=== PATIENT | female | born 1965 | race Caucasian/White ===

== ENCOUNTER 2018-08-21 21:21 | Emergency (ER) | payer OTHER ==
[2018-08-21 21:50] LABS: ADD MAN DIFF? NO
[2018-08-21 21:51] LABS: WHITE BLOOD COUNT 7.5 10^3/ul (4.8-10.8)
[2018-08-21 21:51] LABS: BASOPHILS % 0.5 % (0.0-2.0); EOSINOPHILS # 0.1 10^3/ul (0.0-0.5); EOSINOPHILS % 0.7 % (0.0-7.0); HEMATOCRIT 35.4 % (37.0-47.0); HEMOGLOBIN 12.5 g/dl (12.0-16.0); LYMPHOCYTES # 1.5 10^3/ul (0.8-2.9); LYMPHOCYTES % 20.3 % (15.0-51.0); MEAN CORPUSCULAR HEMOGLOBIN 29.4 pg (29.0-33.0); MEAN CORPUSCULAR HGB CONC 35.3 g/dl (32.0-37.0); MEAN CORPUSCULAR VOLUME 83.3 fl (82.0-101.0); MEAN PLATELET VOLUME 10.5 fl (7.4-10.4); MONOCYTE # 0.6 10^3/ul (0.3-0.9); MONOCYTES % 7.7 % (0.0-11.0); NEUTROPHIL # 5.3 10^3/ul (1.6-7.5); NEUTROPHILS % 70.4 % (39.0-77.0); PLATELET COUNT 194 10^3/UL (140-415); RED BLOOD COUNT 4.25 10^6/ul (4.20-5.40); RED CELL DISTRIBUTION WIDTH 12.6 % (11.5-14.5)
[2018-08-21] MEDS: SODIUM CHLORIDE 0.9% 1L BAG IV* (21:55)
[2018-08-21 22:10] LABS: ALANINE AMINOTRANSFERASE 22 IU/L (13-69); ALBUMIN 3.7 g/dl (3.3-4.9); ALBUMIN/GLOBULIN RATIO 1.37; ALKALINE PHOSPHATASE 86 IU/L (42-121); ANION GAP 9 (5-13); ASPARTATE AMINO TRANSFERASE 15 IU/L (15-46); BILIRUBIN,INDIRECT 0.8 mg/dl (0-1.1); BILIRUBIN,TOTAL 0.8 mg/dl (0.2-1.3); BLOOD UREA NITROGEN 8 mg/dl (7-20); CARBON DIOXIDE 29 mmol/L (21-31); CHLORIDE 101 mmol/L (97-110); CREATININE 0.81 mg/dl (0.44-1.00); Estimated GFR > 60 mL/min (>60); GLUCOSE 264 mg/dl (70-220); SODIUM 139 mmol/L (135-144); TOTAL PROTEIN 6.4 g/dl (6.1-8.1)
[2018-08-21 22:11] LABS: INR 0.92; PROTIME 12.5 Sec (11.9-14.9)
[2018-08-21 22:12] LABS: PARTIAL THROMBOPLASTIN TIME 28.8 Sec (23.0-35.0)
[2018-08-21] MEDS: CEFEPIME 2GM/50 ML (PMX) 50 ML IVPB (22:22)
[2018-08-21] MEDS: morphine 10 MG INJ IV (22:26)
[2018-08-21] MEDS: VANCOMYCIN 1 GM (PMX) 250 ML IVPB (22:37)
[2018-08-21] MEDS ORDERED: IOHEXOL 300MG/ML 150 ML BTL (23:11)
[2018-08-21] MEDS ORDERED: SOD CHLORIDE 0.9% 100 ML (23:11)
[2018-08-21 23:53] LABS: LACTIC ACID 1.2 mmol/L (0.5-2.0)
[2018-08-22] MEDS: morphine 10 MG INJ IV (02:17)
== END 2018-08-22 03:17 | disposition home or self-care (01) ==
LOC: E/R 08-22 03:17
DX: L76.82 Other postprocedural complications of skin and subcutaneous tissue (principal); S30.1XXA Contusion of abdominal wall, initial encounter; R10.9 Unspecified abdominal pain; X58.XXXA Exposure to other specified factors, initial encounter; Y92.9 Unspecified place or not applicable
CPT/HCPCS: 36415; 71045; 74176; 80053; 83605; 85025; 85610; 85730; 87040-91; 93005; 96374; 96375; 96376; 99285-25